=== PATIENT | male | born 1970 | race Two or more races ===

== ENCOUNTER → 2022-06-20 | Outpatient (CLI) | payer OTHER ==
[2022-06-20 14:57] LABS: ALKALINE PHOSPHATASE 101 U/L (46-116); ALT/SGPT 24 U/L (7.0-40); AST/SGOT 21 U/L (<34); BILIRUBIN,TOTAL 0.6 MG/DL (0.3-1.2); BLOOD UREA NITROGEN 16 MG/DL (9-23); CALCIUM LEVEL 9.6 MG/DL (8.5-10.1); CARBON DIOXIDE LEVEL 28 MMOL/L (20-31); CHLORIDE LEVEL 106 MMOL/L (98-107); CREATININE FOR GFR 0.93 MG/DL (0.70-1.30); GLOMERULAR FILTRATION RATE > 60.0 (>56); GLUCOSE, FASTING 87 MG/DL (60-100); POTASSIUM SERUM 4.4 MMOL/L (3.5-5.1); SODIUM LEVEL 141 MMOL/L (136-145); TOTAL PROTEIN 7.7 G/DL (5.7-8.2)
[2022-06-20 15:06] LABS: HEPATITIS B SURFACE ANTIGEN NEGATIVE (NEGATIVE)
[2022-06-20 17:47] LABS: APPEARANCE, URINE CLEAR (CLEAR); BACTERIA, URINE AUTO NEGATIVE (NEGATIVE); BILIRUBIN, URINE AUTO NEGATIVE (NEGATIVE); BLOOD, URINE BLOOD 1+ (NEGATIVE); COLOR, URINE YELLOW (YELLOW); GLUCOSE, URINE (UA) AUTO NEGATIVE (NEGATIVE); KETONE, URINE AUTO NEGATIVE (NEGATIVE); LEUKOCYTE ESTERASE, URINE AUTO NEGATIVE (NEGATIVE); MUCUS, URINE SMALL (NEGATIVE); NITRITE, URINE AUTO NEGATIVE (NEGATIVE); PROTEIN, URINE AUTO NEGATIVE (NEGATIVE); RBC, URINE AUTO 1 /HPF (0-3); SQUAMOUS EPITHELIAL CELL UR AU 0 /HPF (0-6); UROBILINOGEN, URINE AUTO 0.2 mg/dL (0.0-2.0); WBC, URINE AUTO 1 /HPF (0-3)
[2022-06-20 18:54] LABS: GC DNA AMPLIFICATION NEGATIVE (NEGATIVE)
[2022-06-22 00:10] LABS: % CD8 Pos Lymph 47.3 % (12.0-35.5); %CD4 Pos Lymphs 12.5 % (30.8-58.5); ABS Eosinophils 0.2 x10E3/uL (0.0-0.4); ABS Lymphs 1.2 x10E3/uL (0.7-3.1); ABS Monocytes 0.3 x10E3/uL (0.1-0.9); ABS Neutophils 1.6 x10E3/uL (1.4-7.0); Abs CD4 Helper 150 /uL (359-1519); Abs CD8 Suppres 568 /uL (109-897); CD4/CD8 Ratio 0.26 (0.92-3.72); Eosinophils 7 % (Not Estab.); HCT 38.9 % (37.5-51.0); HEPATITIS A IgG TOTAL Positive (Negative); HEPATITIS B CORE ANTIBODY IGG Positive (Negative); HGB 13.7 g/dL (13.0-17.7); HIV-1 RNA PCR QUANT 2 LC550285 70 copies/mL (.); HIV-1 RNA PCR QUANT 3 LC550285 1.845 (.); Immature Grans 0 % (Not Estab.); Lymphocytes 35 % (Not Estab.); MCH 30.7 pg (26.6-33.0); MCHC 35.2 g/dL (31.5-35.7); MCV 87 fL (79-97); Monocytes 8 % (Not Estab.); Neutrophils 49 % (Not Estab.); Platelets 200 x10E3/uL (150-450); RBC 4.46 x10E6/uL (4.14-5.80); WBC 3.3 x10E3/uL (3.4-10.8)
== END ==
LOC: M PLALAB 10:31
PROVIDERS: ATTEND Internal Medicine Infectious Disease
DX: B20 Human immunodeficiency virus [HIV] disease (principal)